=== PATIENT | male | born 1960 | race Two or more races ===

== ENCOUNTER 2020-02-03 10:27 | Emergency (ER) | payer OTHER ==
[2020-02-03 10:42] VITALS: BP 119/81; PULSE 77; TEMP 98.1; BMI 25.0
[2020-02-03] MEDS ORDERED: INDOMETHACIN 50 MG CAPSULE PO ONE (11:16)
[2020-02-03] MEDS ORDERED: COLCHICINE 0.6 MG TAB PO ONE (11:16)
[2020-02-03] MEDS ORDERED: KETOROLAC TROMETHAMINE 60 MG/2 ML VIAL IM ONE (11:17)
[2020-02-03] MEDS ORDERED: COLCHICINE 0.6 MG CAP ONE ×2 (11:27→12:52)
[2020-02-03] MEDS ORDERED: KETOROLAC TROMETHAMINE 60 MG/2 ML VIAL ONE (11:27)
[2020-02-03 11:55] LABS: BASO % 0.9 % (0-2.0); EOS % 2.3 % (0-4.5); HEMATOCRIT 35.4 % (35.4-49); HEMOGLOBIN 11.9 GM/dL (11.7-16.9); LYMPH % 26.7 % (8-40); MCH 31.2 pg (25.7-33.7); MCHC 33.6 g/dl (32.0-35.9); MEAN CELL VOLUME 92.6 fl (80-96); MEAN PLT VOLUME 7.5 fl (7.5-11.1); MONO % 8.1 % (3.8-10.2); PLATELET COUNT 234 K/MM3 (134-434); RBC 3.82 M/mm3 (4.00-5.60); RDW 12.7 % (11.9-15.9); WHITE BLOOD COUNT 7.6 K/mm3 (4.0-10.0)
[2020-02-03 12:04] LABS: ALBUMIN 3.5 g/dl (3.4-5.0); BILIRUBIN,TOTAL 0.4 mg/dL (0.2-1); CALCIUM 9.2 mg/dL (8.5-10.1); CREATININE 1.2 mg/dL (0.55-1.3); POTASSIUM 4.9 mmol/L (3.5-5.1); TOT PROT 7.1 g/dl (6.4-8.2)
--- NOTE | 2020-02-03 12:10 | PDOC ---
History of Present Illness - General Chief Complaint: Edema Stated Complaint: L/FOOT PROBLEM Time Seen by Provider: 02/03/20 11:06 History Source: Patient - History of Present Illness Occurred: reports: yesterday Severity: Yes: moderate Lower Extremity Pain Location: left: 1st toe Past History - Medical History Allergies/Adverse Reactions: Allergies Allergy/AdvReac Type Severity Reaction Status Date / Time No Known Allergies Allergy Verified 09/27/19 11:17 Home Medications: Ambulatory Orders Lisinopril/Hydrochlorothiazide [Lisinopril-Hctz 20-25 mg Tab] 1 each PO DAILY 02/15/14 Simvastatin [Zocor -] 20 mg PO DAILY 02/15/14 metFORMIN HCL [Metformin ER Osmotic] 1,000 mg PO DAILY 02/15/14 Cephalexin [Keflex] 500 mg PO Q6H #28 capsule 02/03/20 Indomethacin [Indocin -] 50 mg PO TID #15 capsule 02/03/20 COPD: No Diabetes: Yes HTN: Yes Hypercholesterolemia: Yes - Immunization History Immunization Up to Date: No - Psycho-Social/Smoking History Smoking Status: No Smoking History: Never smoked Have you smoked in the past 12 months: No Number of Cigarettes Smoked Daily: 0 - Substance Abuse Hx (Audit-C & DAST Scrn) How often the patient has a drink containing alcohol: Monthly or less Score: In Men: 4 or > Positive; In Women: 3 or > Positive: 1 Screen Result (Pos requires Nsg. Audit-10AR): Negative In the last yr the pt used illegal drug/Rx for NonMed reason: No Score: Yes response is considered Positive: 0 Screen Result (Positive result requires Nsg. DAST-10): Negative Review of Systems - Review of Systems Constitutional: No: Fever, Malaise Musculoskeletal: Yes: Joint Pain, Joint Swelling *Physical Exam - Vital Signs Last Vital Signs Temp Pulse Resp BP Pulse Ox 98.1 F 77 16 119/81 99 02/03/20 10:34 02/03/20 10:34 02/03/20 10:34 02/03/20 10:34 02/03/20 10:34 - Physical Exam General Appearance: Yes: Appropriately Dressed. No: Apparent Distress HEENT: positive: Normal Voice Neck: positive: Supple Respiratory/Chest: negative: Respiratory Distress Extremity: positive: Tender (w/ mild erythema and sig ttp to IP joint of L great toe, less tender to MTP joint, pedal pulses intact) ED Treatment Course - LABORATORY CBC & Chemistry Diagram: 02/03/20 11:20 02/03/20 11:20 - RADIOLOGY Radiology Studies Ordered: Category Date Time Status FOOT-LEFT [RAD] Stat Radiology 02/03/20 11:17 Ordered - Medications Given in the ED: ED Medications Discontinued Medications Generic Name Dose Route Start Last Admin Trade Name Moon PRN Reason Stop Dose Admin Colchicine 1.2 mg 02/03/20 11:16 02/03/20 11:32 Colcrys PO 02/03/20 11:17 1.2 mg ONCE ONE Administration Indomethacin 50 mg 02/03/20 11:16 02/03/20 11:32 Indocin - PO 02/03/20 11:17 Not Given ONCE ONE Ketorolac Tromethamine 60 mg 02/03/20 11:17 02/03/20 11:32 Toradol Injection - IM 02/03/20 11:18 60 mg ONCE ONE Administration Medical Decision Making - Medical Decision Making 02/03/20 11:49 59 yo M, h/o HLD, DM, polysubstance abuse including ETOH abuse, here w/ L great toe pain/swelling and redness since yesterday. No trauma. No f/c. No h/o similar condition. No h/o gout see exam Podagra Gout vs cellulitis, no ulcers, tinea or open wounds on exam No systemic s/s Well rupal and in NAD -trial of gout tx for pain -labs -XR -reassess 02/03/20 12:48 Labs w/ slightly elevated ESR and CRP, no leukocytosis. Arthritic changes on XR. Pt reports feeling better w/ meds in ED. Will dc w/ short course of NSAID (no contraindication currently). Will also add keflex for ? cellulitis. Pt stable upon discharge to return in 2 days for reassessment Discharge - Discharge Information Problems reviewed: Yes Clinical Impression/Diagnosis: Podagra Condition: Stable Disposition: HOME - Additional Discharge Information Prescriptions: Indomethacin [Indocin -] 50 mg PO TID #15 capsule Cephalexin [Keflex] 500 mg PO Q6H #28 capsule - Follow up/Referral Referrals: ON STAFF,NOT [Primary Care Provider] - - Patient Discharge Instructions Patient Printed Discharge Instructions: Gout Additional Instructions: Based on your exam, you may have gout versus an infection and you were treated for both. You were started on indomethacin (pain medicine) and keflex (antibiotics). Take both meds as directed. Return to ER in 2 days for reassessment Return sooner if symptoms worsen prior to then, as discussed Follow-up with your PMD - Post Discharge Activity
[2020-02-03 12:43] LABS: ERYTHROCYTE SEDIMENTATION RATE 44 mm/hr (0-20)
[2020-02-03] MEDS ORDERED: COLCHICINE 0.6 MG CAP PO ONE (12:45)
== END 2020-02-03 13:01 | disposition home or self-care (01) ==
LOC: JER 10:27
PROC: 3E0233Z Introduction of Anti-inflammatory into Muscle, Percutaneous Approach (ICD-10-PCS; principal; 2020-02-03)
DX: M10.9 Gout, unspecified (principal)
CPT/HCPCS: 36415; 73630-TC-LT; 80053; 84550; 85025; 85651; 86140; 99284-25

== ENCOUNTER 2020-02-05 11:40 | Emergency (ER) | payer OTHER ==
--- NOTE | 2020-02-05 11:53 | PDOC ---
Rapid Medical Evaluation Chief Complaint: Edema Time Seen by Provider: 02/05/20 11:44 Medical Evaluation: Allergies Allergy/AdvReac Type Severity Reaction Status Date / Time No Known Allergies Allergy Verified 09/27/19 11:17 02/05/20 11:51 I performed a brief in-person evaluation of this patient. Pt is a 59 y/o male who was told to come to the ED for a recheck of his L lower extremity swelling. He states the pain is feeling much better. He was seen for a cellulitis vs gout. Pertinent physical exam findings: mild swelling to the L foot I have ordered the following: none Patient to proceed to ED for further evaluation. Discharge Disposition - Diagnosis Visit for wound check - Referrals - Patient Instructions - Post Discharge Activity
[2020-02-05 11:55] VITALS: BP 131/63; PULSE 76; TEMP 98.2; BMI 24.2
--- NOTE | 2020-02-05 12:10 | PDOC ---
History of Present Illness - General Chief Complaint: Edema Stated Complaint: SENT BY PCP ( LEG SWELLING) Time Seen by Provider: 02/05/20 11:44 History Source: Patient - History of Present Illness Occurred: reports: other Lower Extremity Pain Location: left: 1st toe Past History - Medical History Allergies/Adverse Reactions: Allergies Allergy/AdvReac Type Severity Reaction Status Date / Time No Known Allergies Allergy Verified 02/05/20 11:55 Home Medications: Ambulatory Orders Lisinopril/Hydrochlorothiazide [Lisinopril-Hctz 20-25 mg Tab] 1 each PO DAILY 02/15/14 Simvastatin [Zocor -] 20 mg PO DAILY 02/15/14 metFORMIN HCL [Metformin ER Osmotic] 1,000 mg PO DAILY 02/15/14 Cephalexin [Keflex] 500 mg PO Q6H #28 capsule 02/03/20 Indomethacin [Indocin -] 50 mg PO TID #15 capsule 02/03/20 COPD: No Diabetes: Yes HTN: Yes Hypercholesterolemia: Yes - Immunization History Immunization Up to Date: No - Psycho-Social/Smoking History Smoking Status: No Smoking History: Never smoked Have you smoked in the past 12 months: No Number of Cigarettes Smoked Daily: 0 - Substance Abuse Hx (Audit-C & DAST Scrn) How often the patient has a drink containing alcohol: Never Score: In Men: 4 or > Positive; In Women: 3 or > Positive: 0 Screen Result (Pos requires Nsg. Audit-10AR): Negative In the last yr the pt used illegal drug/Rx for NonMed reason: No Score: Yes response is considered Positive: 0 Screen Result (Positive result requires Nsg. DAST-10): Negative Review of Systems - Review of Systems Constitutional: No: Chills, Fever Musculoskeletal: No: Joint Pain, Joint Swelling Integumentary: No: Erythema *Physical Exam - Vital Signs Last Vital Signs Temp Pulse Resp BP Pulse Ox 98.2 F 76 16 131/63 100 02/05/20 11:52 02/05/20 11:52 02/05/20 11:52 02/05/20 11:52 02/05/20 11:52 - Physical Exam General Appearance: Yes: Appropriately Dressed. No: Apparent Distress HEENT: positive: Normal Voice Neck: positive: Supple Respiratory/Chest: negative: Respiratory Distress Extremity: negative: Tender, Swelling, Erythema Integumentary: positive: Dry, Warm Neurologic: positive: Fully Oriented, Alert, Normal Mood/Affect Medical Decision Making - Medical Decision Making 02/05/20 12:10 59-year-old male history of diabetes, CAD, polysubstance abuse, here for wound check. Patient was seen by myself 2 days ago for left podagra consistent with mostly pain and erythema to left great toe. Labs reveal mildly elevated inflammatory markers, no leukocytosis and possible arthritic changes on x-ray. Was discharged on anti-inflammatories and Keflex. States he no longer has any pain or redness and that condition has significantly improved. No fever or chills. On exam patient, appears well and well and in no apparent distress with resolution of erythema, tenderness and swelling to L great toe. Discharged to continue medications and to return only as needed, otherwise follow-up with his PMD Discharge - Discharge Information Problems reviewed: Yes Clinical Impression/Diagnosis: Visit for wound check Condition: Improved Disposition: HOME - Follow up/Referral Referrals: Jessy Hooks MD [Primary Care Provider] - - Patient Discharge Instructions Additional Instructions: Your condition appears to be healing very well Continue medications as directed and return only if condition worsens Otherwise, please see your PMD as needed - Post Discharge Activity
== END 2020-02-05 12:19 | disposition home or self-care (01) ==
LOC: JERFT 11:40
DX: Z48.00 Encounter for change or removal of nonsurgical wound dressing (principal)
CPT/HCPCS: 99281-25

== ENCOUNTER 2020-11-18 11:28 | Emergency (ER) | payer OTHER ==
[2020-11-18 11:40] VITALS: BP 113/76; PULSE 79; TEMP 98; BMI 25.0
[2020-11-18] MEDS ORDERED: KETOROLAC TROMETHAMINE 60 MG/2 ML VIAL IM ONE (12:13)
[2020-11-18] MEDS ORDERED: METHOCARBAMOL 500 MG TABLET PO ONE (12:14)
[2020-11-18] MEDS ORDERED: LIDOCAINE 5% TOPICAL PATCH TP ONE (12:14)
[2020-11-18] MEDS ORDERED: DEXAMETHASONE LIQUID 0.5 MG/5 ML PO ONE (12:14)
[2020-11-18] MEDS ORDERED: METHOCARBAMOL 500 MG TABLET ONE (12:16)
[2020-11-18] MEDS ORDERED: KETOROLAC TROMETHAMINE 30 MG/1 ML VIAL ONE (12:16)
[2020-11-18] MEDS ORDERED: DEXAMETHASONE SOD PHOSPHATE 10 MG/1 ML VIAL ONE (12:16)
[2020-11-18] MEDS ORDERED: LIDOCAINE 5% TOPICAL PATCH ONE (12:16)
== END 2020-11-18 12:36 | disposition home or self-care (01) ==
LOC: JERFT 11:28
PROC: 3E0233Z Introduction of Anti-inflammatory into Muscle, Percutaneous Approach (ICD-10-PCS; principal; 2020-11-18)
DX: M54.42 Lumbago with sciatica, left side (principal)
CPT/HCPCS: 99284-25